=== PATIENT | female | born 1960 | race Caucasian/White ===

== ENCOUNTER 2016-07-20 14:09 | Emergency (ER) | payer OTHER ==
--- NOTE | ~2016-07-20 | CR173 ---
[facility] Service of [facility] RADIOLOGY TEXT RESULTS PATIENT: SARA DERAS LOCATION: [facility] : 60 UNIT #: [id number] AGE: [address]: Joseph Leos DO SEX: F ORDER DR: [id number] [facility] [address] [place], [place] [address] [id number] E MR#: [id number] Acc #: [id number] NAME: SARA DERAS : 1960 SEX: F STUDY DATE/TIME: 07/20/2016 14:52 UNIT: [facility] ROOM: STUDY DESCRIPTION: CR Knee 3 Views Rt Attending Physician: Joseph Leos D.O. Ordering Physician: Joseph Leos D.O. Primary Care Physician: [facility], MEDICAL IMAGING REPORT This report is preliminary unless electronic signature is present EXAM Right knee, 3 views. INDICATIONS Fall and knee pain since last night. COMPARISON No comparisons. FINDINGS There is moderate medial compartment narrowing. Tricompartmental degenerative changes. Small knee joint effusion. No fracture. IMPRESSION Degenerative changes as described. Dictated by... Prosper Elizabeth M.D. THIS IS AN ELECTRONICALLY VERIFIED REPORT Prosper Elizabeth M.D. at 07/20/2016 4:47 PM ARMANDO/tabby TD: 07/20/2016 16:33 JOB #: [id number] MEDICAL IMAGING REPORT Page 1 of 1 COPY
--- NOTE | ~2016-07-20 | CR181 ---
[facility] A Service of [facility] RADIOLOGY TEXT RESULTS PATIENT: SARA DERAS LOCATION: [facility] : 60 UNIT #: [id number] AGE: [address]: Joseph Leos DO SEX: F ORDER DR: [id number] [facility] [address] [place], [place] [address] [id number] E MR#: [id number] Acc #: [id number] NAME: SARA DERAS : 1960 SEX: F STUDY DATE/TIME: 07/20/2016 14:46 UNIT: [facility] ROOM: STUDY DESCRIPTION: CR Lumbar Spine 2 or 3 Views Attending Physician: Joseph Leos D.O. Ordering Physician: Joseph Leos D.O. Primary Care Physician: [facility] MEDICAL IMAGING REPORT This report is preliminary unless electronic signature is present EXAM Lumbar spine 3 views 07/20/2016 INDICATIONS Fall last night with back pain. COMPARISON STUDIES No comparisons. FINDINGS There is degenerative disc disease with osteophyte formation at L2-L3. There is grade 1 anterolisthesis of L4 on L5. Multilevel facet degenerative changes. Alignment normal. IMPRESSION Degenerative changes as described. Dictated by... Prosper Elizabeth M.D. THIS IS AN ELECTRONICALLY VERIFIED REPORT Prosper Elizabeth M.D. at 07/20/2016 4:47 PM ARMANDO/mi TD: 07/20/2016 16:17 JOB #: [id number] MEDICAL IMAGING REPORT Page 1 of 1 COPY
--- NOTE | ~2016-07-20 | CR107 ---
[facility] A Service of [facility] & [facility] RADIOLOGY TEXT RESULTS PATIENT: SARA DERAS LOCATION: [facility] : 60 UNIT #: [id number] AGE: [address]: Joseph Leos DO SEX: F ORDER DR: [id number] [facility] [address] [place], [place] [address] [id number] E MR#: [id number] Acc #: [id number] NAME: SARA DERAS : 1960 SEX: F STUDY DATE/TIME: 07/20/2016 14:47 UNIT: [facility] ROOM: STUDY DESCRIPTION: CR Femur 2 Views Rt Attending Physician: Joseph Leos D.O. Ordering Physician: Joseph Leos D.O. Primary Care Physician: [facility] MEDICAL IMAGING REPORT This report is preliminary unless electronic signature is present EXAM Right femur 2 views 07/20/2016 INDICATIONS Right leg pain after fall yesterday. COMPARISON STUDIES No comparisons. FINDINGS There is no fracture or dislocation. There may be a tiny knee joint effusion. IMPRESSION No fracture. There may be a tiny knee joint effusion. Dictated by... Prosper Elizabeth M.D. THIS IS AN ELECTRONICALLY VERIFIED REPORT Prosper Elizabeth M.D. at 07/20/2016 4:47 PM Kimberlee TD: 07/20/2016 16:19 JOB #: [id number] MEDICAL IMAGING REPORT Page 1 of 1 COPY
--- NOTE | ~2016-07-20 | US85 ---
[facility] A Service of [facility] & [facility] RADIOLOGY TEXT RESULTS PATIENT: SARA DERAS LOCATION: [facility] : 60 UNIT #: [id number] AGE: [address]: Joseph Leos DO SEX: F ORDER DR: [id number] [facility] [address] [place], [place] [address] [id number] E MR#: [id number] Acc #: [id number] NAME: SARA DERAS : 1960 SEX: F STUDY DATE/TIME: 07/20/2016 14:17 UNIT: [facility] ROOM: STUDY DESCRIPTION: LE Veins Unilat or Ltd Stdy Attending Physician: Joseph Leos D.O. Ordering Physician: [facility] Primary Care Physician: [facility] MEDICAL IMAGING REPORT This report is preliminary unless electronic signature is present EXAM Right leg vein Doppler on 07/20/2016 INDICATIONS Right knee pain and swelling for the last 6 months. Multiple recent falls. TECHNIQUE Venous ultrasound examination of the right lower extremity was performed using grayscale, spectral Doppler and color flow Doppler imaging. FINDINGS The examination is negative. There is no evidence of right lower extremity deep venous thrombus from the groin to the lower calf. Visualized greater saphenous vein is also patent. IMPRESSION Negative examination. No evidence of right lower extremity deep venous thrombosis. Dictated by... Augustine Yan Jr., M.D. THIS IS AN ELECTRONICALLY VERIFIED REPORT Augustine Yan Jr., M.D. at 07/20/2016 4:49 PM Talia TD: 07/20/2016 15:41 JOB #: [id number] MEDICAL IMAGING REPORT Page 1 of 1 COPY
--- NOTE | ~2016-07-20 | CR252 ---
[facility] A Service of [facility] & [facility] RADIOLOGY TEXT RESULTS PATIENT: SARA DERAS LOCATION: [facility] : 60 UNIT #: [id number] AGE: [address]: Joseph Leos DO SEX: F ORDER DR: [id number] [place] [address] [place], [place] [address] [id number] E MR#: [id number] Acc #: [id number] NAME: SARA DERAS : 1960 SEX: F STUDY DATE/TIME: 07/20/2016 14:55 UNIT: [facility] ROOM: STUDY DESCRIPTION: CR Tibia and Fibula 2 Views Lt Attending Physician: Joseph Leos D.O. Ordering Physician: Joseph Leos D.O. Primary Care Physician: [facility] MEDICAL IMAGING REPORT This report is preliminary unless electronic signature is present EXAM Left tibia fibula 2 views 07/20/2016 INDICATIONS Leg pain after falling last night. COMPARISON STUDIES No comparisons. FINDINGS There is no fracture or dislocation. Degenerative changes of the knee. IMPRESSION No fracture. Dictated by... Prosper Elizabeth M.D. THIS IS AN ELECTRONICALLY VERIFIED REPORT Prosper Elizabeth M.D. at 07/20/2016 4:47 PM Kimberlee TD: 07/20/2016 16:20 JOB #: [id number] MEDICAL IMAGING REPORT Page 1 of 1 COPY
[~2016-07-20 14:09] MED LIST: ASPIRIN; LEXAPRO; LIPITOR; TOPAMAX
[2016-07-20 14:14] LABS: BASOPHIL# 0.1 X10e3 (0-0.3); EOSINOPHIL# 0.2 X10e3 (0-0.7); EOSINOPHIL% 2.4 % (0.0-7.0); HEMATOCRIT 37.9 % (35.0-45.0); HEMOGLOBIN 12.3 gm/dL (12.0-16.0); LYMPHOCYTE# 3.3 X10e3 (1.0-3.5); LYMPHOCYTE% 35.8 % (17.0-45.0); MEAN CELL VOLUME 85.9 FL (83-96); MEAN CORPUSCULAR HEMOGLOBIN 27.8 PG (28-34); MEAN CORPUSCULAR HGB CONC 32.4 g/dL (30-36); MONOCYTE# 0.7 X10e3 (0-1.0); MONOCYTE% 7.4 % (3.0-12.0); NEUTROPHIL# 4.9 X10e3 (1.5-7.1); NEUTROPHIL% 53.4 % (40-75); PLATELET COUNT 317 X10e3 (140-420); RED BLOOD COUNT 4.41 X10e (3.90-5.30); RED CELL DISTRIBUTION WIDTH 14.4 % (11.0-15.5); WHITE BLOOD COUNT 9.1 X10e3 (4.0-10.5)
[2016-07-20 14:16] LABS: DIFF IND NO
[2016-07-20 15:54] LABS: ALBUMIN SERUM 4.4 g/dL (3.5-5.0); ALKALINE PHOSPHATASE 113 U/L (32-92); ALT (SGPT) 17 U/L (10-40); AST (SGOT) 22 U/L (10-42); BLOOD UREA NITROGEN 16 mg/dL (9-23); BUN/CREATININE RATIO 22.85; CALCIUM SERUM 9.1 mg/dL (8.4-10.2); CARBON DIOXIDE 24 mmol/L (22-31); CHLORIDE 104 mmol/L (100-111); CREATININE SERUM 0.7 mg/dL (0.6-1.4); GLOM FILT RATE Estimated 97.5 mL/min (>60); GLUCOSE FASTING 87 mg/dL (70-110); POTASSIUM 4.2 mmol/L (3.5-5.1); PROTEIN TOTAL SERUM 7.3 g/dL (6.0-8.3); SODIUM 137 mmol/L (135-145); URIC ACID 4.1 mg/dL (2.6-7.2)
[2016-07-20 15:55] LABS: BILIRUBIN, DIRECT <0.1 mg/dL (0.0-0.2); BILIRUBIN,TOTAL <0.1 mg/dL (0.2-2.0)
[2016-07-20 16:17] LABS: URINE SOURCE CLEAN CATCH
[2016-07-20 16:29] LABS: URINE APPEARANCE CLEAR; URINE BILIRUBIN NEG (NEG); URINE BLOOD 1+ (NEG); URINE COLOR YELLOW; URINE GLUCOSE NEG (NEG); URINE KETONE NEG (NEG); URINE LEUKOCYTE ESTERASE 2+ (NEG); URINE NITRATE NEG (NEG); URINE PH 5.5 (5-8); URINE PROTEIN NEG (NEG); URINE SPECIFIC GRAVITY 1.017 (1.003-1.035); URINE UROBILINOGEN 0.2 MG/DL (NEG)
[2016-07-20 16:32] LABS: AMPHETAMINE POS (NEG); BARBITURATES NEG (NEG); BENZODIAZEPINES NEG (NEG); COCAINE NEG (NEG); MARIJUANA POS (NEG); OPIATES NEG (NEG); TRICYCLIC ANTIDEPRESSANTS NEG (NEG); U METHADONE NEG (NEG)
[2016-07-20 16:34] LABS: CULTURE INDICATED? NO
[2016-07-20 18:08] LABS: POC - CKMB 1.2 ng/mL (0.0-7.9); POC - TROPONIN <0.05 ng/mL (<=0.05)
== END 2016-07-20 19:22 | disposition home or self-care (01) ==
LOC: CED 14:09
PROVIDERS: Emergency Medicine
DX: M25.561 Pain in right knee (principal); M25.562 Pain in left knee; G89.29 Other chronic pain; W19.XXXA Unspecified fall, initial encounter; Y92.9 Unspecified place or not applicable; F32.9 Major depressive disorder, single episode, unspecified; Z90.710 Acquired absence of both cervix and uterus
CPT/HCPCS: 29505; 29530; 36415; 72100; 73552; 73562; 73590; 80048; 80076; 80307; 81003; 82553; 84484; 84550; 85025; 93971; 96374; 96375; 99284; J1170; J1885; J2930